=== PATIENT | male | born 1995 | race Caucasian/White ===

== ENCOUNTER → 2017-10-18 | Outpatient (REF) | payer OTHER ==
[2017-10-18 12:50] LABS: FREE T4 0.45 NG/DL (0.76-1.46)
[2017-10-18 15:00] LABS: CHLAMYDIA DNA AMPLIFICATION NEGATIVE (NEGATIVE); GC DNA AMPLIFICATION NEGATIVE (NEGATIVE)
== END ==
LOC: M SFHCLERA 08:47
DX: R94.6 Abnormal results of thyroid function studies (principal); Z86.19 Personal history of other infectious and parasitic diseases
CPT/HCPCS: 84443

== ENCOUNTER → 2019-08-25 | Outpatient (REF) | payer MEDICARE ==
[2019-08-25 21:19] LABS: FREE T4 0.35 NG/DL (0.76-1.46)
== END ==
LOC: M SFHCLERA 16:31
PROVIDERS: ATTEND Family Medicine
DX: E03.9 Hypothyroidism, unspecified (principal)

== ENCOUNTER → 2019-09-25 | Outpatient (REF) | payer MEDICARE ==
[2019-09-25 17:50] LABS: FREE T4 0.52 NG/DL (0.76-1.46); THYROID STIMULATING HORMONE 69.7 uIU/ML (0.358-3.740)
== END ==
LOC: M SFHCLERA 12:49
PROVIDERS: ATTEND Family Medicine
DX: E03.9 Hypothyroidism, unspecified (principal)

== ENCOUNTER → 2019-10-13 | Outpatient (REF) | payer MEDICARE ==
[2019-10-13 20:36] LABS: FREE T4 1.01 NG/DL (0.76-1.46); THYROID STIMULATING HORMONE 56.2 uIU/ML (0.358-3.740)
== END ==
LOC: M SFHCLERA 16:09
PROVIDERS: ATTEND Family Medicine
DX: E03.9 Hypothyroidism, unspecified (principal)

== ENCOUNTER → 2019-11-20 | Outpatient (REF) | payer OTHER ==
[2019-11-20 12:48] LABS: THYROID STIMULATING HORMONE 26.6 uIU/ML (0.358-3.740)
== END ==
LOC: M SFHCLERA 09:08
PROVIDERS: ATTEND Family Medicine
DX: E03.9 Hypothyroidism, unspecified (principal)

== ENCOUNTER → 2020-02-26 | Outpatient (REF) | payer OTHER ==
[2020-02-27 09:04] LABS: THYROID PEROXIDASE ANTIBODY > 1300.0 U/ML (<60.0)
== END ==
LOC: M SFHCLERA 11:45
PROVIDERS: ATTEND Family Medicine
DX: E03.9 Hypothyroidism, unspecified (principal)

== ENCOUNTER → 2020-04-27 | Outpatient (CLI) | payer OTHER ==
--- NOTE | 2020-05-28 15:14 | SLEEPCENT ---
DATE: 04/27/2020 ORDERED BY: Jey Jetre Nocturnal polysomnography was performed for evaluation of sleep physiology in this patient with a history of excessive somnolence and nonrestorative sleep. There was 7 hours and 29 minutes of data reviewed. There was 408.5 minutes of sleep identified. Sleep latency was mildly prolonged at 31 minutes. REM latency was normal at 78 minutes. Sleep architecture was fairly good with some minor fragmentation There were five REM cycles. Overall sleep efficiency was 91.8%. The patient's electrocardiogram showed a sinus rhythm with some artifact. Average heart rate was 69 beats per minute. EEG showed normal waveforms for wake and sleep. There were 83 respiratory events identified of 10 seconds in duration or greater, for an apnea-hypopnea index of 12.2. The events were obstructive, not exclusive to sleep stage nor body posture. Arousals from respiratory events occurred 8.7 times per hour, and oxygen desaturations were seen into the 80s. There was some minor activity in the limb leads. Limb movement arousals were few. IMPRESSION: Obstructive sleep apnea syndrome (G47.33). Apnea-hypopnea index 12.2 RECOMMENDATION: The patient should be encouraged to return to the sleep disorder center for pressure therapy. In the interim, alcohol and sedative avoidance should be practiced and caution exercised during the operation of motor vehicles. LIZD
== END ==
LOC: M SLEEP 20:00
PROVIDERS: ATTEND Physician Assistant
DX: G47.30 Sleep apnea, unspecified (principal)

== ENCOUNTER → 2020-06-13 | Outpatient (CLI) | payer OTHER ==
--- NOTE | 2020-06-20 19:08 | SLEEPCENT ---
DATE: 06/13/2020 ORDERED BY: Jey Jeter Nocturnal polysomnography was performed for the titration of pressure therapy in this patient with obstructive sleep apnea syndrome, apnea-hypopnea index 12.2. For testing, patient was fit with a ResMed F30 full-face mask of medium size. There was 4 cm of water pressure applied to the circuit, and the lights were extinguished. There was 7 hours and 46 minutes of data reviewed. There was 436 minutes of sleep identified. Sleep latency was normal at 17.5 minutes. REM latency was normal at 75 minutes. Sleep architecture was good with four REM cycles appreciated. Overall sleep efficiency was 94.5%. The electrocardiogram showed a sinus rhythm with an average heart rate of 70 beats per minute. EEG showed normal waveforms for wake and sleep. Respiratory events were best palliated with CPAP at pressure of +12. Remaining measures orf sleep physiology were normal. IMPRESSION: Obstructive sleep apnea syndrome (G47.33). RECOMMENDATION: Nightly use of pressure therapy, 12 cm of water. MTDD
== END ==
LOC: M SLEEP 20:00
PROVIDERS: ATTEND Physician Assistant
DX: G47.33 Obstructive sleep apnea (adult) (pediatric) (principal)

== ENCOUNTER → 2020-11-11 | Outpatient (CLI) | payer OTHER | LOC: M LAB 14:10 | PROVIDERS: ATTEND Family Medicine | DX: E03.9 Hypothyroidism, unspecified (principal) ==

== ENCOUNTER → 2021-08-17 | Outpatient (CLI) | payer SELFPAY ==
[2021-08-18 15:09] LABS: Lyme Disease IgG/IgM Antibodie <0.91 ISR (0.00-0.90); Lyme Disease IgM Ab Quantitati <0.80 index (0.00-0.79)
== END ==
LOC: M LAB 12:55
PROVIDERS: ATTEND Physician Assistant
DX: M25.471 Effusion, right ankle (principal)